=== PATIENT | male | born 1975 | race Caucasian/White ===

== ENCOUNTER 2017-10-09 07:12 | Inpatient (IN) | payer MEDICAID ==
[~2017-10-09] VITALS: Ht 152.4 cm; Wt 67.3 kg
[2017-10-09] VITALS (10 sets, daily range): BP systolic 100–111; BP diastolic 58–72; PULSE 67–75; RESP 12–24; TEMP 98; Ht 152.4 cm; Wt 67.3 kg
[2017-10-09] MEDS ORDERED: HYDROmorphONE 1 MG/ML SYG IV STA (07:35)
[2017-10-09] MEDS ORDERED: ONDANSETRON 4 MG INJ IV STA (07:35)
[2017-10-09] MEDS ORDERED: SOD CHLORIDE 0.9% 1,000 ML IV STA ×3 (07:35→15:05)
[2017-10-09 08:10] LABS: BASOPHIL # 0.1 10^3/ul (0.0-0.1); BASOPHILS % 0.7 % (0.0-2.0); EOSINOPHILS % 0.1 % (0.0-7.0); HEMATOCRIT 51.3 % (42.0-52.0); HEMOGLOBIN 17.6 g/dl (14.0-18.0); LYMPHOCYTES # 3.7 10^3/ul (0.8-2.9); LYMPHOCYTES % 31.8 % (15.0-51.0); MEAN CORPUSCULAR HEMOGLOBIN 31.2 pg (29.0-33.0); MEAN CORPUSCULAR HGB CONC 34.3 g/dl (32.0-37.0); MEAN PLATELET VOLUME 9.7 fl (7.4-10.4); MONOCYTE # 0.5 10^3/ul (0.3-0.9); MONOCYTES % 4.3 % (0.0-11.0); NEUTROPHIL # 7.2 10^3/ul (1.6-7.5); NEUTROPHILS % 62.4 % (39.0-77.0); PLATELET COUNT 352 10^3/UL (140-415); RED BLOOD COUNT 5.64 10^6/ul (4.70-6.10); RED CELL DISTRIBUTION WIDTH 13.8 % (11.5-14.5); WHITE BLOOD COUNT 11.5 10^3/ul (4.8-10.8)
[2017-10-09 08:27] LABS: ALANINE AMINOTRANSFERASE 32 IU/L (13-69); ALBUMIN 4.9 g/dl (3.3-4.9); ALBUMIN/GLOBULIN RATIO 1.19; ALKALINE PHOSPHATASE 159 IU/L (42-121); ASPARTATE AMINO TRANSFERASE 16 IU/L (15-46); BILIRUBIN,INDIRECT 0.3 mg/dl (0-1.1); BILIRUBIN,TOTAL 0.3 mg/dl (0.2-1.3); BLOOD UREA NITROGEN 16 mg/dl (7-20); CALCIUM 8.8 mg/dl (8.4-10.2); CHLORIDE 101 mmol/L (97-110); CREATININE 1.08 mg/dl (0.61-1.24); POTASSIUM 5.1 mmol/L (3.5-5.1); SODIUM 139 mmol/L (135-144)
--- NOTE | 2017-10-09 08:29 | RADRPT ---
PROCEDURE: XR Chest. CLINICAL INDICATION: Sepsis . TECHNIQUE: Single frontal chest x-ray. COMPARISON: None. FINDINGS: The lungs are clear of acute infiltrates, edema, effusions, or masses.. The cardiomediastinal silho uette is unremarkable. The osseous structures are intact. IMPRESSION: No acute cardiopulmonary disease. RPTAT: GG .Raffy Prado MD, MD Date Time Electronically viewed and signed by .Raffy Prado MD, MD on 10/09/2017 08:29 .L/
[2017-10-09 08:30] LABS: INR 1.03; PROTIME 13.6 Sec (11.9-14.9); PT RATIO 1.1
[2017-10-09 08:31] LABS: PARTIAL THROMBOPLASTIN TIME 30.2 Sec (25.0-35.0)
--- NOTE | 2017-10-09 08:32 | RADRPT ---
PROCEDURE: CT abdomen and pelvis without contrast. CLINICAL INDICATION: Emergency room patient. Sepsis. TECHNIQUE: CT scan of the abdomen and pelvis without contrast was performed and is reconstructed a t 2.5 mm contiguous axial intervals from the dome of the diaphragm to the inferior pubic rami.. The patient was scanned without intravenous contrast. Sagittal and coronal reformatted images were obt ained from the axial source images. The calculated radiation dose measures 397 mGy centimeters. The CTDI measures 7 mGy. Individualized dose optimization technique was used for the performance of this exam. This included 1. Automated exposure control. 2. Adjustment of the mA and / or kV according to the patient's size. 3. Use of iterative reconstructed technique. COMPARISON: None. FINDINGS: None The liver is of normal size, contour and attenuation with no mass or ductal dilatation. There is a c alcified granuloma at the peripheral left lung base No gallstones are visualized. No splenic, adr enal or pancreatic abnormalities present. Kidneys are of normal size and contour. No hydronephrosis, calculus or masses seen. Ureters are o f normal course and caliber with no stone. No bladder mass or stone is present. Prostate and semina l vesicles are normal. There is no aneurysm. No adenopathy is present. No bowel mass or obstruction is present. The appendix is not confidently visualized, however, no inflamed appendix is seen. No phlegmon, ascites or pneumoperitoneum is visualized. The osseous structures are intact. IMPRESSION: No evidence of urolithiasis, obstructive uropathy, diverticulitis or appendicitis. .Theo Ndiaye MD, Date Time Electronically viewed and signed by .Theo Ndiaye MD, MD on 10/09/2017 08:31 .A/
[2017-10-09 08:41] LABS: TROPONIN-I < 0.012 ng/ml (0.00-0.12)
[2017-10-09 08:42] LABS: ANION GAP 38 (8-16); CARBON DIOXIDE < 5 mmol/L (21-31); GLUCOSE 496 mg/dl (70-220)
[2017-10-09] MEDS ORDERED: LACTATED RINGER'S 1,000 ML IV STA (08:46)
[2017-10-09] MEDS ORDERED: INSULIN HUMAN REGULAR 100 UNIT in SOD CHLORIDE 0.9% 99 ML IV STA ×2 (08:46→09:09)
[2017-10-09 09:11] LABS: MODE ROOM AIR; MetHgb Venous 0.2 %; Sample Type Blood venous; Venous COHb 0.3 %; Venous Fraction OxyHgb 53.9 %; Venous Total Hemglobin 17.1 g/dl
--- NOTE | 2017-10-09 09:17 | ERD ---
ER Documentation Chief Complaint Chief Complaint Pt with back pain, vomiting and dizziness since yesterday. HPI Patient is a 41-year-old male who presents with back pain. The patient says that he has bilateral lower back pain which started yesterday and has been constant and sharp in nature. It has worsened since yesterday. He denies fevers. He has had no urinary symptoms or cough. He has had no treatment as of yet. He said that he has never had this before. He has diabetes and takes oral medications but no insulin. ROS All systems reviewed and are negative except as per history of present illness. Allergies Allergies: Coded Allergies: No Known Allergy (Unverified , 10/09/17) PMhx/Soc Medical and Surgical Hx: pt denies Medical Hx, pt denies Surgical Hx Hx Alcohol Use: No Hx Substance Use: No Hx Tobacco Use: No Smoking Status: Never smoker FmHx Family History: diabetes Physical Exam Vitals Vital Signs Date Time Temp Pulse Resp B/P Pulse Ox O2 Delivery O2 Flow Rate FiO2 10/09/17 08:15 Nasal Cannula 10/09/17 07:17 98.6 111 20 137/91 98 Physical Exam Const: Moderate distress secondary to pain Head: Atraumatic Eyes: Normal Conjunctiva ENT: Normal External Ears, Nose and Mouth. Neck: Full range of motion..~ No meningismus. Resp: Clear to auscultation bilaterally Cardio: Regular rate and rhythm, no murmurs Abd: Soft, non tender, non distended. Normal bowel sounds Skin: No petechiae or rashes Back: No midline tenderness to palpation, bilateral lower back pain with palpation Ext: No cyanosis, or edema Neur: Awake and alert Psych: Normal Mood and Affect Result Diagram: 10/09/17 0730 10/09/17 0730 Results 24 hrs Laboratory Tests Test 10/09/17 07:30 10/09/17 08:46 White Blood Count 11.510^3/ul Red Blood Count 5.6410^6/ul Hemoglobin 17.6g/dl Hematocrit 51.3% Mean Corpuscular Volume 91.0fl Mean Corpuscular Hemoglobin 31.2pg Mean Corpuscular Hemoglobin Concent 34.3g/dl Red Cell Distribution Width 13.8% Platelet Count 58254^3/UL Mean Platelet Volume 9.7fl Neutrophils % 62.4% Lymphocytes % 31.8% Monocytes % 4.3% Eosinophils % 0.1% Basophils % 0.7% Nucleated Red Blood Cells % 0.0/100WBC Neutrophils # 7.210^3/ul Lymphocytes # 3.710^3/ul Monocytes # 0.510^3/ul Eosinophils # 0.010^3/ul Basophils # 0.110^3/ul Nucleated Red Blood Cells # 0.010^3/ul Prothrombin Time 13.6Sec Prothrombin Time Ratio 1.1 INR International Normalized Ratio 1.03 Activated Partial Thromboplast Time 30.2Sec Sodium Level 139mmol/L Potassium Level 5.1mmol/L Chloride Level 101mmol/L Carbon Dioxide Level < 5mmol/L Anion Gap 38 Blood Urea Nitrogen 16mg/dl Creatinine 1.08mg/dl Glucose Level 496mg/dl Lactic Acid Level 4.9mmol/L Calcium Level 8.8mg/dl Total Bilirubin 0.3mg/dl Direct Bilirubin 0.00mg/dl Indirect Bilirubin 0.3mg/dl Aspartate Amino Transf (AST/SGOT) 16IU/L Alanine Aminotransferase (ALT/SGPT) 32IU/L Alkaline Phosphatase 159IU/L Troponin I < 0.012ng/ml Total Protein 9.0g/dl Albumin 4.9g/dl Globulin 4.10g/dl Albumin/Globulin Ratio 1.19 Blood Gas Specimen Source Blood venous Arterial Blood Date Drawn 10/09/2017 9:05:07 AM Arterial Blood Gas Puncture Site VENOUS LINE Mayur Test N/A Venous Blood pH 6.931 Venous Blood pCO2 (Temp Corrected) 28.9mmHG Venous Blood pO2 (Temp Corrected) 29.9mmHG Venous Blood HCO3 5.9mmol/L Venous Blood Oxygen Saturation 54.2mmHG Venous Blood Base Excess -25.8mmol/L Venous Blood Total Hemoglobin 17.1g/dl Venous Blood Oxyhemoglobin 53.9% Venous Blood Methemoglobin 0.2% Carboxyhemoglobin 0.3% Blood Gas Temperature 37.0C Blood Gas Modality ROOM AIR FiO2 21.0% Blood Gas Critical Value Read Back MD ALLEN Blood Gas Notified Whom [place] Blood Gas Notified Time 10/09/2017 9:09:09 AM Current Medications Medications (Trade) Dose Ordered Sig/Cici Route PRN Reason Start Time Stop Time Status Last Admin Dose Admin Sodium Chloride 1,000 ml @ 1,000 mls/hr Q1H STAT IV 10/09/17 07:35 10/09/17 08:34 DC 10/09/17 07:57 Sodium Chloride (NS) 1,000 ml @ 1,000 mls/hr Q1H STAT IV 10/09/17 07:35 10/09/17 08:34 DC 10/09/17 07:57 Hydromorphone HCl (Dilaudid) 1 mg ONCE STAT IV 10/09/17 07:35 10/09/17 07:37 DC 10/09/17 07:56 Ondansetron HCl 4 mg 4 mg ONCE STAT IV 10/09/17 07:35 10/09/17 07:37 DC 10/09/17 07:55 Lactated Ringer's 1,000 ml @ 1,000 mls/hr Q1H STAT IV 10/09/17 08:46 10/09/17 09:45 Insulin Human Regular 100 unit/ Sodium Chloride 100 ml @ 0 mls/hr TITRATE STAT IV 10/09/17 08:46 10/09/17 09:10 DC Insulin Human Regular/Sodium Chloride (Novolin-R/NS) 100 ml @ 7 mls/hr ONCE STAT IV 10/09/17 09:09 10/09/17 23:26 Procedures/MDM CT abdomen pelvis shows no surgical process per radiology. Patient is a 41-year-old male who presents with acute diabetic ketoacidosis. The patient was found to have severe acidosis along with elevated sugar and elevated anion gap. The patient was given 2 L of normal saline 1 L of lactated Ringer's for fluid resuscitation. The patient was started on an insulin drip at 7 U/h. He will need admission to the intensive care unit. The lactic acid is greater than 4 but at this point there is no sign of infection and I doubt sepsis or septic shock. I believe his elevated lactic acid is related to the diabetic ketoacidosis and poor perfusion. I spoke with Dr. Freitas from the panel team for admission to the intensive care unit. Critical Care: Time: 35 minutes excluding all billable procedures. Treatments/Evaluations: Close monitoring and treatment of unstable vital signs, cardiorespiratory, and neurologic status, while maintaining tight balance of fluid, respiratory, and cardiac interventions. Departure Diagnosis: Primary Impression: DKA (diabetic ketoacidoses) Diabetes mellitus type: type 2 Diabetes mellitus complication detail: without coma Qualified Code: E13.10 - Diabetic ketoacidosis without coma associated with type 2 diabetes mellitus Additional Impression: Back pain Back pain location: low back pain Chronicity: acute Back pain laterality: bilateral Sciatica presence: without sciatica Qualified Code: M54.5 - Acute bilateral low back pain without sciatica Condition: Critical AMISH SERNA MD Oct 09, 2017 09:17
[2017-10-09] MEDS ORDERED: ONDANSETRON 4 MG INJ IV PRN (09:30)
[2017-10-09] MEDS ORDERED: DEXTROSE 50% 50 ML SYRINGE IV PRN ×2 (09:30)
--- NOTE | 2017-10-09 09:34 | HP ---
Date/Time of Note Date/Time of Note DATE: 10/09/17 TIME: 09:29 Assessment/Plan VTE Prophylaxis VTE Prophylaxis Intervention: SCD's Assessment/Plan Assessment/Plan 41 yo M with 1, DKA 2. Newly diagnosed poorly controlled DM 2 Plan: Admit ICU / DKA protocol with insulin drip, aggressive IV hydration and 4 hourly labs / DM education r/o occult infection Supportive care further interventions per clinical course. HPI/ROS Admit Date/Time Admit Date/Time 10/09/17 Hx of Present Illness This is a 41-year-old male who was recently diagnosed with diabetes type 2 and started on oral metformin about 2 months ago who presents to the emergency room today with severe bilateral lower back pain that started yesterday and lethargy as well as some nausea. He denies fever he denies headache, denies cough, he does have some dysuria but there is no hematuria. In the emergency room and was found to be in severe DKA and is being admitted for monitoring and management. ROS 12 point review if systems was done and pertinent findings are as noted. PMH/Family/Social Past Medical History Medical History: diabetes Past Surgical History Past Surgical Hx: no surgical history Family History Significant Family History: diabetes Social History Alcohol Use: none Smoking Status: Never smoker Drug Use: none Exam/Review of Systems Vital Signs Vitals VS - Last 72 Hours, by Label Date Time Temp Pulse Resp B/P Pulse Ox O2 Delivery O2 Flow Rate FiO2 10/09/17 15:00 98.0 77 16 107/66 100 Room Air 10/09/17 13:20 98.0 78 16 111/67 100 Room Air 10/09/17 11:21 97.8 80 18 115/74 100 Room Air 10/09/17 10:03 72 18 130/69 100 Room Air 10/09/17 08:15 Nasal Cannula 10/09/17 07:17 98.6 111 20 137/91 98 VS - Last 72 Hours, by Label Date Time Temp Pulse Resp B/P Pulse Ox O2 Delivery O2 Flow Rate FiO2 10/09/17 08:15 Nasal Cannula 10/09/17 07:17 98.6 111 20 137/91 98 Vital Signs Date Time Temp Pulse Resp B/P Pulse Ox O2 Delivery O2 Flow Rate FiO2 10/09/17 08:15 Nasal Cannula 10/09/17 07:17 98.6 111 20 137/91 98 Exam Constitutional: alert, oriented, other (very acutely ill looking) Head: atraumatic, normocephalic Eyes: PERRL ENMT: No mucosa pink and moist (dry) Neck: non-tender, supple, No jvd Respiratory: clear to auscultation, normal air movement Cardiovascular: No regular rate and rhythm (mild tachycardia) Gastrointestinal: bowel sounds, non-tender, soft Extremities: No edema Neurological: lethargic, nl mental status Labs Result Diagram: 10/09/17 0730 10/09/17 0730 Medications Medications Current Medications Dextrose (D50w Syringe) 50 ml Q15M PRN IV For BS 50 or less; Start 10/09/17 at 09:30; Status UNV Dextrose (D50w Syringe) 25 ml Q15M PRN IV BS between 50-70; Start 10/09/17 at 09:30; Status UNV Diagnostic Test (Pha) 1 ea 1 ea Q1H XX ; Start 10/09/17 at 09:30; Status UNV Sodium Chloride 1,000 ml @ 125 mls/hr Q8H IV ; Start 10/09/17 at 09:15; Status UNV Dextrose/Sodium Chloride (D5-1/2ns) 1,000 ml @ 125 mls/hr Q8H IV ; Start at 09:15; Status UNV Famotidine (Pepcid Iv) 20 mg BID IV ; Start 10/09/17 at 21:00; Status UNV Ondansetron HCl (Zofran Inj) 4 mg Q6H PRN IV NAUSEA AND/OR VOMITING; Start 10/09/17 at 09:30; Status UNV Docusate Sodium (Colace) 200 mg BID PO ; Start 10/09/17 at 21:00; Status UNV Procedures Procedures Laboratory Tests Test 10/09/17 07:30 10/09/17 08:46 10/09/17 09:19 White Blood Count 11.510^3/ul Red Blood Count 5.6410^6/ul Hemoglobin 17.6g/dl Hematocrit 51.3% Mean Corpuscular Volume 91.0fl Mean Corpuscular Hemoglobin 31.2pg Mean Corpuscular Hemoglobin Concent 34.3g/dl Red Cell Distribution Width 13.8% Platelet Count 14273^3/UL Mean Platelet Volume 9.7fl Neutrophils % 62.4% Lymphocytes % 31.8% Monocytes % 4.3% Eosinophils % 0.1% Basophils % 0.7% Nucleated Red Blood Cells % 0.0/100WBC Neutrophils # 7.210^3/ul Lymphocytes # 3.710^3/ul Monocytes # 0.510^3/ul Eosinophils # 0.010^3/ul Basophils # 0.110^3/ul Nucleated Red Blood Cells # 0.010^3/ul Prothrombin Time 13.6Sec Prothrombin Time Ratio 1.1 INR International Normalized Ratio 1.03 Activated Partial Thromboplast Time 30.2Sec Sodium Level 139mmol/L Potassium Level 5.1mmol/L Chloride Level 101mmol/L Carbon Dioxide Level < 5mmol/L Anion Gap 38 Blood Urea Nitrogen 16mg/dl Creatinine 1.08mg/dl Glucose Level 496mg/dl Lactic Acid Level 4.9mmol/L Calcium Level 8.8mg/dl Total Bilirubin 0.3mg/dl Direct Bilirubin 0.00mg/dl Indirect Bilirubin 0.3mg/dl Aspartate Amino Transf (AST/SGOT) 16IU/L Alanine Aminotransferase (ALT/SGPT) 32IU/L Alkaline Phosphatase 159IU/L Troponin I < 0.012ng/ml Total Protein 9.0g/dl Albumin 4.9g/dl Globulin 4.10g/dl Albumin/Globulin Ratio 1.19 Blood Gas Specimen Source Blood venous Arterial Blood Date Drawn 10/09/2017 9:05:07 AM Arterial Blood Gas Puncture Site VENOUS LINE Mayur Test N/A Venous Blood pH 6.931 Venous Blood pCO2 (Temp Corrected) 28.9mmHG Venous Blood pO2 (Temp Corrected) 29.9mmHG Venous Blood HCO3 5.9mmol/L Venous Blood Oxygen Saturation 54.2mmHG Venous Blood Base Excess -25.8mmol/L Venous Blood Total Hemoglobin 17.1g/dl Venous Blood Oxyhemoglobin 53.9% Venous Blood Methemoglobin 0.2% Carboxyhemoglobin 0.3% Blood Gas Temperature 37.0C Blood Gas Modality ROOM AIR FiO2 21.0% Blood Gas Critical Value Read Back MD ALLEN Blood Gas Notified Whom [place] Blood Gas Notified Time 10/09/2017 9:09:09 AM Bedside Glucose 397mg/dL Current Medications Medications (Trade) Dose Ordered Sig/Cici Route PRN Reason Start Time Stop Time Status Last Admin Dose Admin Sodium Chloride 1,000 ml @ 1,000 mls/hr Q1H STAT IV 10/09/17 07:35 10/09/17 08:34 DC 10/09/17 07:57 1,000 MLS/HR Sodium Chloride (NS) 1,000 ml @ 1,000 mls/hr Q1H STAT IV 10/09/17 07:35 10/09/17 08:34 DC 10/09/17 07:57 1,000 MLS/HR Hydromorphone HCl (Dilaudid) 1 mg ONCE STAT IV 10/09/17 07:35 10/09/17 07:37 DC 10/09/17 07:56 1 MG Ondansetron HCl 4 mg 4 mg ONCE STAT IV 10/09/17 07:35 10/09/17 07:37 DC 10/09/17 07:55 4 MG Lactated Ringer's 1,000 ml @ 1,000 mls/hr Q1H STAT IV 10/09/17 08:46 10/09/17 09:45 Insulin Human Regular 100 unit/ Sodium Chloride 100 ml @ 0 mls/hr TITRATE STAT IV 10/09/17 08:46 10/09/17 09:10 DC Insulin Human Regular/Sodium Chloride (Novolin-R/NS) 100 ml @ 7 mls/hr ONCE STAT IV 10/09/17 09:09 10/09/17 23:26 10/09/17 09:16 7 MLS/HR Dextrose (D50w Syringe) 50 ml Q15M PRN IV For BS 50 or less 10/09/17 09:30 UNV Dextrose 25 ml 25 ml Q15M PRN IV BS between 50-70 10/09/17 09:30 UNV Insulin Human Regular/Sodium Chloride (Novolin-R/NS) 100 ml @ 0 mls/hr DKA PROTOCOL IV 10/09/17 09:30 UNV Diagnostic Test (Pha) (Accu-Chek) 1 ea Q1H XX 10/09/17 09:30 UNV Miscellaneous Information HYPOGLYCEMIA TREATMENT HYPOGLYCEM PROTOCOL PRN XX Hypoglycemia (BS < 70) 10/09/17 09:30 UNV Sodium Chloride 1,000 ml @ 125 mls/hr Q8H IV 10/09/17 09:15 UNV Dextrose/Sodium Chloride (D5-1/2ns) 1,000 ml @ 125 mls/hr Q8H IV 10/09/17 09:15 UNV Famotidine (Pepcid Iv) 20 mg BID IV 10/09/17 21:00 UNV Ondansetron HCl (Zofran Inj) 4 mg Q6H PRN IV NAUSEA AND/OR VOMITING 10/09/17 09:30 UNV Docusate Sodium (Colace) 200 mg BID PO 10/09/17 21:00 UNV PROCEDURE: CT abdomen and pelvis without contrast. CLINICAL INDICATION: Emergency room patient. Sepsis. TECHNIQUE: CT scan of the abdomen and pelvis without contrast was performed and is reconstructed at 2.5 mm contiguous axial intervals from the dome of the diaphragm to the inferior pubic rami.. The patient was scanned without intravenous contrast. Sagittal and coronal reformatted images were obtained from the axial source images. The calculated radiation dose measures 397 mGy centimeters. The CTDI measures 7 mGy. Individualized dose optimization technique was used for the performance of this exam. This included 1. Automated exposure control. 2. Adjustment of the mA and / or kV according to the patient's size. 3. Use of iterative reconstructed technique. COMPARISON: None. FINDINGS: None The liver is of normal size, contour and attenuation with no mass or ductal dilatation. There is a calcified granuloma at the peripheral left lung base No gallstones are visualized. No splenic, adrenal or pancreatic abnormalities present. Kidneys are of normal size and contour. No hydronephrosis, calculus or masses seen. Ureters are of normal course and caliber with no stone. No bladder mass or stone is present. Prostate and seminal vesicles are normal. There is no aneurysm. No adenopathy is present. No bowel mass or obstruction is present. The appendix is not confidently visualized, however, no inflamed appendix is seen. No phlegmon, ascites or pneumoperitoneum is visualized. The osseous structures are intact. IMPRESSION: No evidence of urolithiasis, obstructive uropathy, diverticulitis or appendicitis. .Theo Ndiaye MD, MD Date Time Electronically viewed and signed by .Theo Ndiaye MD, MD on 10/09/2017 08: 31 .A/ CC: AMISH SERNA MD PROCEDURE: XR Chest. CLINICAL INDICATION: Sepsis . TECHNIQUE: Single frontal chest x-ray. COMPARISON: None. FINDINGS: The lungs are clear of acute infiltrates, edema, effusions, or masses.. The cardiomediastinal silhouette is unremarkable. The osseous structures are intact. IMPRESSION: No acute cardiopulmonary disease. RPTAT: GG .Raffy Prado MD, MD Date Time Electronically viewed and signed by .Raffy Prado MD, MD on 10/09/2017 08:29 .L/ CC: AMISH SERNA MD, [place] M. Oct 09, 2017 09:34
[2017-10-09] MEDS: ACCU-CHEK XX SCH ×14 (10:30→23:34)
[2017-10-09 11:47] LABS: ADD UMIC YES; UR ASCORBIC ACID NEGATIVE (NEGATIVE); UR BILIRUBIN (Dip) NEGATIVE (NEGATIVE); UR BLOOD (Dip) 1+ mg/dL (NEGATIVE); UR CLARITY CLEAR (CLEAR); UR COLOR STRAW (YELLOW); UR GLUCOSE (Dip) 3+ mg/dL (NEGATIVE); UR KETONES (Dip) 2+ mg/dL (NEGATIVE); UR LEUKOCYTE ESTERASE (Dip) NEGATIVE Leu/ul (NEGATIVE); UR NITRITE (Dip) NEGATIVE (NEGATIVE); UR RBC 0 /HPF (0-5); UR TOTAL PROTEIN (Dip) 2+ mg/dl (NEGATIVE); UR UROBILINOGEN (Dip) NEGATIVE (NEGATIVE)
[2017-10-09 11:56] LABS: MAGNESIUM 1.9 mg/dl (1.7-2.5); PHOSPHORUS 3.4 mg/dl (2.5-4.9)
[2017-10-09 11:58] LABS: BLOOD UREA NITROGEN 14 mg/dl (7-20); CALCIUM 7.7 mg/dl (8.4-10.2); CHLORIDE 111 mmol/L (97-110); CREATININE 0.73 mg/dl (0.61-1.24); GLUCOSE 313 mg/dl (70-220); POTASSIUM 4.8 mmol/L (3.5-5.1); SODIUM 140 mmol/L (135-144)
[2017-10-09 12:04] LABS: ANION GAP 29 (8-16)
[2017-10-09 12:05] LABS: CARBON DIOXIDE < 5 mmol/L (21-31)
[2017-10-09] MEDS ORDERED: LIDOCAINE 1% (MDV) 10 ML INJ ONE (12:27)
[2017-10-09] MEDS ORDERED: GLUCOSE GEL 15 GRAM TUBE PO PRN ×2 (13:30)
[2017-10-09] MEDS ORDERED: GLUCOSE GEL 15 GRAM TUBE BUCCAL PRN (13:30)
[2017-10-09] MEDS ORDERED: GLUCAGON 1 MG INJ IM PRN (13:30)
[2017-10-09] MEDS: INSULIN HUMAN REGULAR 100 UNIT in SOD CHLORIDE 0.9% 99 ML IV SCH ×2 (13:30→23:45)
[2017-10-09] MEDS: SOD CHLORIDE 0.9% 1,000 ML IV SCH ×2 (13:38→16:53)
[2017-10-09 14:26] LABS: CALCIUM 7.6 mg/dl (8.4-10.2); CREATININE 0.69 mg/dl (0.61-1.24); POTASSIUM 4.1 mmol/L (3.5-5.1)
[2017-10-09] MEDS ORDERED: SOD CHLORIDE 0.9% 250 ML IV ONE (16:00)
[2017-10-09] MEDS: DEXTROSE 5%-0.45% NACL 1,000 ML IV SCH ×2 (16:59→23:39)
[2017-10-09 17:15] LABS: OPIATES Negative (NEGATIVE)
[2017-10-09 17:16] LABS: BARBITURATES Negative (NEGATIVE); BENZODIAZEPINES Negative (NEGATIVE); CANNABINOIDS Negative (NEGATIVE); COCAINE Negative (NEGATIVE)
[2017-10-09 18:32] LABS: CALCIUM 7.7 mg/dl (8.4-10.2); CREATININE 0.62 mg/dl (0.61-1.24); POTASSIUM 3.3 mmol/L (3.5-5.1)
[2017-10-09] MEDS: FAMOTIDINE 20 MG TAB PO SCH (21:06)
[2017-10-09] MEDS: DOCUSATE SODIUM 100 MG CAP PO SCH (21:07)
[2017-10-09 23:04] LABS: CREATININE 0.57 mg/dl (0.61-1.24)
[2017-10-09 23:07] LABS: POTASSIUM 2.7 mmol/L (3.5-5.1)
[2017-10-09] MEDS: POTASSIUM CHLORIDE 250 ML IVPB SCH (23:22)
[2017-10-10] VITALS (17 sets, daily range): BP systolic 93–105; BP diastolic 45–71; PULSE 52–79; RESP 10–17
[2017-10-10] MEDS: ACCU-CHEK XX SCH ×17 (00:39→21:00)
[2017-10-10] MEDS: DEXTROSE 5%-0.45% NACL 1,000 ML IV SCH ×2 (02:15→07:38)
[2017-10-10 02:50] LABS: CALCIUM 8.3 mg/dl (8.4-10.2); CREATININE 0.48 mg/dl (0.61-1.24); POTASSIUM 3.2 mmol/L (3.5-5.1)
[2017-10-10] MEDS: SOD CHLORIDE 0.9% 1,000 ML IV SCH ×2 (03:21→09:43)
[2017-10-10] MEDS: POTASSIUM CHLORIDE 250 ML IVPB SCH (04:50)
[2017-10-10 07:33] LABS: CALCIUM 8.3 mg/dl (8.4-10.2); CHOL/HDL RATIO 5.7 RATIO; CREATININE 0.58 mg/dl (0.61-1.24); MAGNESIUM 1.8 mg/dl (1.7-2.5); PHOSPHORUS 1.5 mg/dl (2.5-4.9); POTASSIUM 3.1 mmol/L (3.5-5.1)
[2017-10-10] MEDS: INSULIN ASPART [NOVOLOG] 3 ML PEN SC SCH ×4 (08:00→21:10)
[2017-10-10] MEDS: FAMOTIDINE 20 MG TAB PO SCH ×2 (08:11→21:05)
[2017-10-10] MEDS: DOCUSATE SODIUM 100 MG CAP PO SCH ×2 (08:11→21:04)
[2017-10-10] MEDS ORDERED: INSULIN GLARGINE [LANtus] 3 ML PEN SC ONE (08:30)
--- NOTE | 2017-10-10 09:10 | PN ---
Date/Time of Note Date/Time of Note DATE: 10/10/17 TIME: 09:07 Assessment/Plan VTE Prophylaxis VTE Prophylaxis Intervention: other Lines/Catheters IV C[facility]ter Type (from [facility]): Saline Lock Urinary Cath still in place: No Assessment/Plan Problems: (1) DKA (diabetic ketoacidoses) Status: Acute Comment: It is unclear what the stimulating event for this is but he clearly had DKA coming into the hospital. He has negative cardiac enzymes and there is no evidence of lactic acidosis or some type of an infarction of an organ. In addition there is no evidence of active infection. And no evidence of biliary disease. He is coming out of the DKA nicely and actually has very been given a dosage of basal insulin this morning. I will check his chemistry about 1:00 and if his bicarb is stabilized I will turn off the insulin drip at that time and transition him over. In addition his appropriate to place him on DPP 4 inhibitor drug and later we can add back and low-dose metformin. I am checking a C-peptide to make sure this is truly a type II diabetic who developed DKA. His most likely type II given the markedly elevated hemoglobin A1c which indicates the chronicity of this issue Qualifiers: Diabetes mellitus type: type 2 Diabetes mellitus complication detail: without coma Qualified Code: E13.10 - Diabetic ketoacidosis without coma associated with type 2 diabetes mellitus (2) Back pain Status: Chronic Comment: This is a chronic issue. He has not been on medications for this and will be deferred to his outpatient primary care physician Qualifiers: Back pain location: low back pain Chronicity: acute Back pain laterality : bilateral Sciatica presence: without sciatica Qualified Code: M54.5 - Acute bilateral low back pain without sciatica (3) Acute hypokalemia Status: Acute Comment: Replacing his potassium Subjective 24 Hr Interval Summary Free Text/Dictation Pleasant gentleman lying in bed. Constitutional: no complaints (No fevers chills or sweats) ENT: no complaints Respiratory: no complaints Cardiovascular: no complaints Gastrointestinal: no complaints Genitourinary: no complaints Musculoskeletal: back pain (Chronic back pain) Neurologic: no complaints Endocrine: no complaints Exam/Review of Systems Vital Signs Vitals Vital Signs Date Time Temp Pulse Resp B/P Pulse Ox O2 Delivery O2 Flow Rate FiO2 10/10/17 06:00 98.7 57 12 94/63 98 Room Air Intake and Output 12/1/17 12/1/17 12/2/17 15:00 23:00 07:00 Intake Total 3000 ml 1183.6 ml 1245.7 ml Output Total 1000 ml 2750 ml 800 ml Balance 2000 ml -1566.4 ml 445.7 ml Exam Constitutional: alert, oriented Neck: non-tender, supple Respiratory: clear to auscultation, normal air movement Cardiovascular: nl pulses, regular rate and rhythm Gastrointestinal: nl liver, spleen, non-tender, soft Results Result Diagram: 10/09/17 0730 10/10/17 0606 Results 24 hrs Laboratory Tests Test 10/09/17 09:19 10/09/17 10:22 10/09/17 11:08 10/09/17 11:09 Bedside Glucose 397 H 332 H Lactic Acid Level 2.8 *H Sodium Level 140 Potassium Level 4.8 Chloride Level 111 H Carbon Dioxide Level < 5 *L Anion Gap 29 #H Blood Urea Nitrogen 14 Creatinine 0.73 Glucose Level 313 #H Hemoglobin A1c 13.6 H Calcium Level 7.7 L Phosphorus Level 3.4 Magnesium Level 1.9 Test 10/09/17 11:20 10/09/17 12:57 10/09/17 13:35 10/09/17 13:50 Bedside Glucose 346 H 272 H 270 H Sodium Level 137 Potassium Level 4.1 Chloride Level 111 H Carbon Dioxide Level 5 *L Anion Gap 25 H Blood Urea Nitrogen 14 Creatinine 0.69 Glucose Level 256 H Lactic Acid Level 1.8 Calcium Level 7.6 L Test 10/09/17 14:55 10/09/17 15:38 10/09/17 16:31 10/09/17 17:31 Bedside Glucose 200 190 158 151 Test 10/09/17 17:50 10/09/17 18:36 10/09/17 19:34 10/09/17 21:04 Sodium Level 139 Potassium Level 3.3 L Chloride Level 113 H Carbon Dioxide Level 10 #L Anion Gap 19 H Blood Urea Nitrogen 11 Creatinine 0.62 Glucose Level 144 # Calcium Level 7.7 L Bedside Glucose 173 192 198 Test 10/09/17 21:26 10/09/17 22:22 10/09/17 22:24 10/09/17 23:23 Bedside Glucose 186 210 195 Sodium Level 136 Potassium Level 2.7 *L Chloride Level 112 H Carbon Dioxide Level 15 L Anion Gap 12 # Blood Urea Nitrogen 9 Creatinine 0.57 L Glucose Level 212 Calcium Level 8.0 L Test 10/10/17 00:36 10/10/17 01:10 10/10/17 02:10 10/10/17 02:12 Bedside Glucose 164 142 108 Sodium Level 139 Potassium Level 3.2 L Chloride Level 115 H Carbon Dioxide Level 16 L Anion Gap 11 Blood Urea Nitrogen 8 Creatinine 0.48 L Glucose Level 115 # Calcium Level 8.3 L Test 10/10/17 03:08 10/10/17 04:25 10/10/17 05:37 10/10/17 06:05 Bedside Glucose 134 97 114 White Blood Count Pending Red Blood Count Pending Hemoglobin Pending Hematocrit Pending Mean Corpuscular Volume Pending Mean Corpuscular Hemoglobin Pending Mean Corpuscular Hemoglobin Concent Pending Red Cell Distribution Width Pending Platelet Count Pending Mean Platelet Volume Pending Test 10/10/17 06:06 10/10/17 06:31 10/10/17 06:39 10/10/17 07:34 Sodium Level 139 Potassium Level 3.1 L Chloride Level 113 H Carbon Dioxide Level 19 L Anion Gap 10 Blood Urea Nitrogen 7 Creatinine 0.58 L Glucose Level 133 Calcium Level 8.3 L Phosphorus Level 1.5 #L Magnesium Level 1.8 Triglycerides Level 598 H Cholesterol Level 237 H LDL Cholesterol, Calculated HDL Cholesterol 41 Cholesterol/HDL Ratio 5.7 Bedside Glucose 127 100 Lactic Acid Level 0.8 Test 10/10/17 08:41 Bedside Glucose 111 Medications Medications Current Medications Dextrose (D50w Syringe) 50 ml Q15M PRN IV For BS 50 or less; Start 10/09/17 at 09:30 Dextrose (D50w Syringe) 25 ml Q15M PRN IV BS between 50-70; Start 10/09/17 at 09:30 Diagnostic Test (Pha) 1 ea 1 ea Q1H XX Last administered on 10/10/17 08:42; Admin Dose 1 EA; Start 10/09/17 at 09:30 Sodium Chloride 1,000 ml @ 150 mls/hr Q6H40M IV Last administered on 03:21; Admin Dose 150 MLS/HR; Start 10/09/17 at 09:15 Dextrose/Sodium Chloride (D5-1/2ns) 1,000 ml @ 150 mls/hr Q6H40M IV Last administered on 10/10/17 07:38; Admin Dose 150 MLS/HR; Start 10/09/17 at 09:15 Famotidine (Pepcid) 20 mg BID PO Last administered on 10/10/17 08:11; Admin Dose 20 MG; Start 10/09/17 at 21:00 Ondansetron HCl (Zofran Inj) 4 mg Q6H PRN IV NAUSEA AND/OR VOMITING; Start 10/09/17 at 09:30 Docusate Sodium (Colace) 200 mg BID PO Last administered on 10/10/17 08:11; Admin Dose 200 MG; Start 10/09/17 at 21:00 Miscellaneous Information 1 ea NOTE XX ; Start 10/09/17 at 13:30 Glucose (Glutose) 15 gm Q15M PRN PO DECREASED GLUCOSE; Start 10/09/17 at 13:30 Glucose (Glutose) 22.5 gm Q15M PRN PO DECREASED GLUCOSE; Start 10/09/17 at 13: 30 Glucagon (Glucagen) 1 mg Q15M PRN IM DECREASED GLUCOSE; Start 10/09/17 at 13:30 Glucose (Glutose) 15 gm Q15M PRN BUCCAL DECREASED GLUCOSE; Start 10/09/17 at 13 :30 Morphine Sulfate (morphine) 2 mg Q4H PRN IV pain; Start 10/09/17 at 16:00 Influenza Virus Vaccine (Fluzone) 0.5 ml ONCE ONCE IM* ; Start 10/13/17 at 09:00 ; Stop 10/13/17 at 09:01 FAROOQ GU MD Oct 10, 2017 09:10
[2017-10-10] MEDS ORDERED: POTASSIUM CHLORIDE (SR) 20 MEQ TAB PO ONE ×2 (10:44→20:04)
[2017-10-10] MEDS: POTASSIUM CHLORIDE (SR) 20 MEQ TAB PO SCH ×2 (10:54→21:05)
[2017-10-10] MEDS: LINAGLIPTIN 5 MG TABLET PO SCH (10:55)
[2017-10-10 11:27] LABS: BASOPHILS % 0.4 % (0.0-2.0); EOSINOPHILS # 0.1 10^3/ul (0.0-0.5); EOSINOPHILS % 1.1 % (0.0-7.0); HEMATOCRIT 34.6 % (42.0-52.0); HEMOGLOBIN 12.6 g/dl (14.0-18.0); LYMPHOCYTES # 1.4 10^3/ul (0.8-2.9); LYMPHOCYTES % 25.8 % (15.0-51.0); MEAN CORPUSCULAR HEMOGLOBIN 31.2 pg (29.0-33.0); MEAN CORPUSCULAR HGB CONC 36.4 g/dl (32.0-37.0); MEAN CORPUSCULAR VOLUME 85.6 fl (82.0-101.0); MEAN PLATELET VOLUME 9.9 fl (7.4-10.4); MONOCYTE # 0.4 10^3/ul (0.3-0.9); MONOCYTES % 7.5 % (0.0-11.0); NEUTROPHIL # 3.6 10^3/ul (1.6-7.5); PLATELET COUNT 198 10^3/UL (140-415); RED BLOOD COUNT 4.04 10^6/ul (4.70-6.10); WHITE BLOOD COUNT 5.5 10^3/ul (4.8-10.8)
[2017-10-10 12:25] LABS: CALCIUM 8.5 mg/dl (8.4-10.2); CREATININE 0.53 mg/dl (0.61-1.24); POTASSIUM 3.5 mmol/L (3.5-5.1)
[2017-10-11 02:49] VITALS: BP 100/64; RESP 14
[2017-10-11 05:34] LABS: BASOPHILS % 0.7 % (0.0-2.0); EOSINOPHILS # 0.1 10^3/ul (0.0-0.5); EOSINOPHILS % 1.7 % (0.0-7.0); HEMATOCRIT 34.7 % (42.0-52.0); HEMOGLOBIN 12.7 g/dl (14.0-18.0); LYMPHOCYTES # 1.9 10^3/ul (0.8-2.9); LYMPHOCYTES % 44.7 % (15.0-51.0); MEAN CORPUSCULAR HEMOGLOBIN 31.2 pg (29.0-33.0); MEAN CORPUSCULAR HGB CONC 36.6 g/dl (32.0-37.0); MEAN CORPUSCULAR VOLUME 85.3 fl (82.0-101.0); MEAN PLATELET VOLUME 9.4 fl (7.4-10.4); MONOCYTE # 0.4 10^3/ul (0.3-0.9); MONOCYTES % 8.8 % (0.0-11.0); NEUTROPHIL # 1.9 10^3/ul (1.6-7.5); NEUTROPHILS % 44.1 % (39.0-77.0); PLATELET COUNT 174 10^3/UL (140-415); RED BLOOD COUNT 4.07 10^6/ul (4.70-6.10); WHITE BLOOD COUNT 4.2 10^3/ul (4.8-10.8)
[2017-10-11 06:03] LABS: CALCIUM 8.5 mg/dl (8.4-10.2); CREATININE 0.59 mg/dl (0.61-1.24)
[2017-10-11 07:54] VITALS: BP 109/70; RESP 16
[2017-10-11] MEDS: ACCU-CHEK XX SCH ×4 (08:00→20:25)
[2017-10-11] MEDS: INSULIN ASPART [NOVOLOG] 3 ML PEN SC SCH ×4 (08:04→20:25)
[2017-10-11] MEDS: DOCUSATE SODIUM 100 MG CAP PO SCH ×2 (08:20→20:12)
[2017-10-11] MEDS: FAMOTIDINE 20 MG TAB PO SCH ×2 (08:20→20:13)
[2017-10-11] MEDS: POTASSIUM CHLORIDE (SR) 20 MEQ TAB PO SCH ×3 (08:20→20:13)
[2017-10-11] MEDS: LINAGLIPTIN 5 MG TABLET PO SCH (08:20)
--- NOTE | 2017-10-11 12:39 | PN ---
Date/Time of Note Date/Time of Note DATE: 10/11/17 TIME: 12:37 Assessment/Plan VTE Prophylaxis VTE Prophylaxis Intervention: ambulation Lines/Catheters IV C[facility] Type (from [facility] Saline Lock Urinary Cath still in place: No Assessment/Plan Problems: (1) DKA (diabetic ketoacidoses) Status: Acute Comment: Very likely he is a type II diabetic however the data on this is fully pending. For now he will be on insulin which can be changed as an outpatient. Please note that there was a breakdown in communication he only received 1 dosage of basal insulin yesterday. I will take care of that now. He should be ready for discharge tomorrow Qualifiers: Diabetes mellitus type: type 2 Diabetes mellitus complication detail: without coma Qualified Code: E13.10 - Diabetic ketoacidosis without coma associated with type 2 diabetes mellitus (2) Back pain Status: Chronic Comment: Noted. Qualifiers: Back pain location: low back pain Chronicity: acute Back pain laterality : bilateral Sciatica presence: without sciatica Qualified Code: M54.5 - Acute bilateral low back pain without sciatica (3) Acute hypokalemia Status: Acute Comment: We will replace his potassium. Subjective 24 Hr Interval Summary Free Text/Dictation Patient is feeling much better sitting up and eating and ambulating as well Constitutional: no complaints Respiratory: no complaints Cardiovascular: no complaints Gastrointestinal: no complaints Genitourinary: no complaints Exam/Review of Systems Vital Signs Vitals Vital Signs Date Time Temp Pulse Resp B/P Pulse Ox O2 Delivery O2 Flow Rate FiO2 10/11/17 07:54 97.7 55 16 109/70 100 10/10/17 14:00 Room Air Intake and Output 10/10/17 10/10/17 10/11/17 14:59 22:59 06:59 Intake Total 1395.57 ml 480 ml 600 ml Output Total 1250 ml 2 ml Balance 145.57 ml 480 ml 598 ml Exam Constitutional: alert, oriented Neck: non-tender, supple Respiratory: clear to auscultation, normal air movement Cardiovascular: nl pulses, regular rate and rhythm Results Result Diagram: 10/11/17 0512 10/11/17 0426 Results 24 hrs Laboratory Tests Test 10/10/17 12:40 10/10/17 17:15 10/10/17 20:40 10/11/17 04:26 Bedside Glucose 266 H 205 254 H Sodium Level 135 Potassium Level 3.0 L Chloride Level 102 Carbon Dioxide Level 22 Anion Gap 14 Blood Urea Nitrogen 8 Creatinine 0.59 L Glucose Level 252 H Calcium Level 8.5 Test 10/11/17 05:12 10/11/17 08:01 10/11/17 12:16 White Blood Count 4.2 #L Red Blood Count 4.07 L Hemoglobin 12.7 L Hematocrit 34.7 L Mean Corpuscular Volume 85.3 Mean Corpuscular Hemoglobin 31.2 Mean Corpuscular Hemoglobin Concent 36.6 Red Cell Distribution Width 14.0 Platelet Count 174 Mean Platelet Volume 9.4 Neutrophils % 44.1 Lymphocytes % 44.7 Monocytes % 8.8 Eosinophils % 1.7 Basophils % 0.7 Nucleated Red Blood Cells % 0.0 Neutrophils # 1.9 Lymphocytes # 1.9 Monocytes # 0.4 Eosinophils # 0.1 Basophils # 0.0 Nucleated Red Blood Cells # 0.0 Bedside Glucose 273 H 248 H Medications Medications Current Medications Dextrose (D50w Syringe) 50 ml Q15M PRN IV For BS 50 or less; Start 10/09/17 at 09:30 Dextrose (D50w Syringe) 25 ml Q15M PRN IV BS between 50-70; Start 10/09/17 at 09:30 Famotidine (Pepcid) 20 mg BID PO Last administered on 10/11/17 08:20; Admin Dose 20 MG; Start 10/09/17 at 21:00 Ondansetron HCl (Zofran Inj) 4 mg Q6H PRN IV NAUSEA AND/OR VOMITING; Start 10/09/17 at 09:30 Docusate Sodium (Colace) 200 mg BID PO Last administered on 10/11/17 08:20; Admin Dose 200 MG; Start 10/09/17 at 21:00 Miscellaneous Information 1 ea NOTE XX ; Start 10/09/17 at 13:30 Glucose (Glutose) 15 gm Q15M PRN PO DECREASED GLUCOSE; Start 10/09/17 at 13:30 Glucose (Glutose) 22.5 gm Q15M PRN PO DECREASED GLUCOSE; Start 10/09/17 at 13: 30 Glucagon (Glucagen) 1 mg Q15M PRN IM DECREASED GLUCOSE; Start 10/09/17 at 13:30 Glucose (Glutose) 15 gm Q15M PRN BUCCAL DECREASED GLUCOSE; Start 10/09/17 at 13 :30 Morphine Sulfate (morphine) 2 mg Q4H PRN IV pain; Start 10/09/17 at 16:00 Influenza Virus Vaccine (Fluzone) 0.5 ml ONCE ONCE IM* ; Start 10/13/17 at 09:00 ; Stop 10/13/17 at 09:01 Potassium Chloride (Klor-Con 20) 40 meq TID PO Last administered on 10/11/17 08:20; Admin Dose 40 MEQ; Start 10/10/17 at 13:00; Stop 10/11/17 at 12:59 Linagliptin (Tradjenta) 5 mg DAILY PO Last administered on 10/11/17 08:20; Admin Dose 5 MG; Start 10/10/17 at 09:30 Potassium Chloride (Klor-Con 20) 40 meq BID PO ; Start 10/11/17 at 13:00; Stop 10/12/17 at 12:59; Status UNV Insulin Glargine (Lantus) 15 unit DAILY@20 SC ; Start 10/11/17 at 20:00; Status UNV Insulin Detemir (Levemir) 8 unit ONCE ONCE SC ; Start 10/11/17 at 13:00; Stop 10/11/17 at 13:01; Status UNV FAROOQ GU MD Oct 11, 2017 12:39
[2017-10-11] MEDS ORDERED: INSULIN DETEMIR [LEVEMIR] 3ML CART SC ONE (13:00)
[2017-10-11 14:27] VITALS: BP 91/60; RESP 16
[2017-10-11 19:38] VITALS: BP 100/67; RESP 20
[2017-10-11] MEDS ORDERED: INSULIN GLARGINE [LANtus] 3 ML PEN SC SCH (20:00)
[2017-10-11] MEDS ORDERED: INSULIN ASPART [NOVOLOG] 3 ML PEN SC ONE (21:00)
[2017-10-12] MEDS ORDERED: ACCU-CHEK XX SCH (02:00)
[2017-10-12 02:12] VITALS: BP 94/60; RESP 20
[2017-10-12 07:57] VITALS: BP 97/68; RESP 16
[2017-10-12] MEDS: ACCU-CHEK XX SCH ×2 (08:00→12:45)
[2017-10-12 08:05] LABS: CALCIUM 9.2 mg/dl (8.4-10.2); CREATININE 0.56 mg/dl (0.61-1.24); POTASSIUM 3.9 mmol/L (3.5-5.1)
[2017-10-12] MEDS: morphine 2 MG INJ IV PRN ×2 (08:15→13:15)
[2017-10-12] MEDS: INSULIN ASPART [NOVOLOG] 3 ML PEN SC SCH ×5 (08:16→17:19)
[2017-10-12 08:20] LABS: BASOPHILS % 0.8 % (0.0-2.0); EOSINOPHILS # 0.1 10^3/ul (0.0-0.5); EOSINOPHILS % 1.3 % (0.0-7.0); HEMATOCRIT 38.3 % (42.0-52.0); HEMOGLOBIN 13.9 g/dl (14.0-18.0); LYMPHOCYTES # 1.7 10^3/ul (0.8-2.9); LYMPHOCYTES % 44.5 % (15.0-51.0); MEAN CORPUSCULAR HEMOGLOBIN 31.3 pg (29.0-33.0); MEAN CORPUSCULAR HGB CONC 36.3 g/dl (32.0-37.0); MEAN CORPUSCULAR VOLUME 86.3 fl (82.0-101.0); MEAN PLATELET VOLUME 9.4 fl (7.4-10.4); MONOCYTE # 0.3 10^3/ul (0.3-0.9); MONOCYTES % 8.9 % (0.0-11.0); NEUTROPHIL # 1.7 10^3/ul (1.6-7.5); NEUTROPHILS % 44.2 % (39.0-77.0); PLATELET COUNT 183 10^3/UL (140-415); RED BLOOD COUNT 4.44 10^6/ul (4.70-6.10); RED CELL DISTRIBUTION WIDTH 13.6 % (11.5-14.5); WHITE BLOOD COUNT 3.8 10^3/ul (4.8-10.8)
[2017-10-12] MEDS: LINAGLIPTIN 5 MG TABLET PO SCH (09:26)
[2017-10-12] MEDS: FAMOTIDINE 20 MG TAB PO SCH (09:26)
[2017-10-12] MEDS: DOCUSATE SODIUM 100 MG CAP PO SCH (09:26)
[2017-10-12] MEDS: POTASSIUM CHLORIDE (SR) 20 MEQ TAB PO SCH (09:27)
[2017-10-12 09:28] VITALS: BP 101/56; RESP 18
[2017-10-12] MEDS ORDERED: INSULIN ASPART [NOVOLOG] 3 ML PEN SC ONE (09:30)
--- NOTE | 2017-10-12 09:42 | PDOCDIS ---
Discharge Instructions CONDITION Patient Condition: Stable HOME CARE INSTRUCTIONS: Special Diet: 1800 ADAYour diet recommendation is: Carbohydrate- hydrate controlled diet. FOLLOW UP/APPOINTMENTS Follow-up Plan 1.Follow up with primary care physician in 1 week If you don't have one please let someone know, we can give you resources that may help you pick one. You may also call your insurance company to assign one to you. Review your medication list with your nurse before leaving and if you need new prescriptions please let your nurse know. I may have made changes to your home medications or given you new prescriptions, please let your primary doctor know as well. Stay compliant with your medications and report any side effects to your PCP or pharmacist. Return to the ER if you have any concerns and cannot reach your doctors or call your insurance company, they usually have a nurse that can help you. 2. Call 911 or go to the nearest emergency room if experiencing loss of consciousness, dizziness, chest pain, shortness of breath, vomiting/abdominal pain, speech difficulties, motor weakness or any unusual symptoms. YAYA GONSALVES NP Oct 12, 2017 09:42
[2017-10-12] MEDS ORDERED: GLUCOMETER (09:44)
[2017-10-12] MEDS ORDERED: LANT3I SC (09:44)
[2017-10-12] MEDS ORDERED: METF1000 PO (09:44)
--- NOTE | 2017-10-12 09:45 | DS ---
Date/Time of Note Date/Time of Note DATE: 10/12/17 TIME: 09:45 Discharge Summary Admission/Discharge Info Admit Date/Time Oct 09, 2017 at 09:07 Discharge Date/Time Discharge Diagnosis DKA- Resolved. Type 2 DM Patient Condition: Stable Hospital Course This is a 41-year-old male who was recently diagnosed with diabetes type 2 and started on oral metformin about 2 months ag presented with lethargy and nausea who was noted with severe DKA and was admitted. A1C 13.6. Patient was placed on insulin gtt. Gap closed and he was succefully transitioned to SQ insulon.Patient had DM education.Patient didnot have any further signs.He is now ready for discharge with outpt follow-up.Recommended up-titration of Metformin to 1000 twice a day along with Lantus. Patient verbalized dc instructions. Disposition:Home 60mins spent on coordinating discharge on this patient. Patient was seen in collaboration with . Home Meds Active Scripts [Glucometer] No Conflict Check, #1 For blood sugar check 3 times a day. Patient needs 30 day supplies of lancets, and test strips. Prov:YAYA GONSALVES NP 10/12/17 Insulin Glargine* (Lantus*) 100 Unit/Ml Soln, 15 UNIT SC DAILY, #1 VIAL Okay to substitute based on insurance status. If insulin pen is not covered, okay to replace with vial. Please provide patient with 30 day supplies of insulin syringes, needles, lancets, and test strips. Patient to check blood glucose 2-3 times a day. Prov:YAYA GONSALVES NP 10/12/17 Metformin Hcl* (Metformin Hcl*) 1,000 Mg Tablet, 1000 MG PO WITH BREAKFAST DINNE , #30 TAB Prov:YAYA GONSALVES NP 10/12/17 Follow-up Plan 1.Follow up with primary care physician in 1 week If you don't have one please let someone know, we can give you resources that may help you pick one. You may also call your insurance company to assign one to you. Review your medication list with your nurse before leaving and if you need new prescriptions please let your nurse know. I may have made changes to your home medications or given you new prescriptions, please let your primary doctor know as well. Stay compliant with your medications and report any side effects to your PCP or pharmacist. Return to the ER if you have any concerns and cannot reach your doctors or call your insurance company, they usually have a nurse that can help you. 2. Call 911 or go to the nearest emergency room if experiencing loss of consciousness, dizziness, chest pain, shortness of breath, vomiting/abdominal pain, speech difficulties, motor weakness or any unusual symptoms. Primary Care Provider Care Physician No Primary Pending Labs Laboratory Tests Test 10/11/17 12:16 10/11/17 14:23 10/11/17 17:30 10/11/17 20:15 Bedside Glucose 248mg/dL (70-220) 316mg/dL (70-220) 253mg/dL (70-220) 331mg/dL (70-220) Test 10/12/17 01:44 10/12/17 07:30 10/12/17 08:13 Bedside Glucose 197mg/dL (70-220) 206mg/dL (70-220) White Blood Count 3.810^3/ul (4.8-10.8) Red Blood Count 4.4410^6/ul (4.70-6.10) Hemoglobin 13.9g/dl (14.0-18.0) Hematocrit 38.3% (42.0-52.0) Mean Corpuscular Volume 86.3fl (82.0-101.0) Mean Corpuscular Hemoglobin 31.3pg (29.0-33.0) Mean Corpuscular Hemoglobin Concent 36.3g/dl (32.0-37.0) Red Cell Distribution Width 13.6% (11.5-14.5) Platelet Count 65046^3/UL (140-415) Mean Platelet Volume 9.4fl (7.4-10.4) Neutrophils % 44.2% (39.0-77.0) Lymphocytes % 44.5% (15.0-51.0) Monocytes % 8.9% (0.0-11.0) Eosinophils % 1.3% (0.0-7.0) Basophils % 0.8% (0.0-2.0) Nucleated Red Blood Cells % 0.0/100WBC (0.0-0.0) Neutrophils # 1.710^3/ul (1.6-7.5) Lymphocytes # 1.710^3/ul (0.8-2.9) Monocytes # 0.310^3/ul (0.3-0.9) Eosinophils # 0.110^3/ul (0.0-0.5) Basophils # 0.010^3/ul (0.0-0.1) Nucleated Red Blood Cells # 0.010^3/ul (0.0-0.0) Sodium Level 137mmol/L (135-144) Potassium Level 3.9mmol/L (3.5-5.1) Chloride Level 101mmol/L (97-110) Carbon Dioxide Level 25mmol/L (21-31) Anion Gap 15 (8-16) Blood Urea Nitrogen 14mg/dl (7-20) Creatinine 0.56mg/dl (0.61-1.24) Glucose Level 210mg/dl (70-220) Calcium Level 9.2mg/dl (8.4-10.2) YAYA GONSALVES NP Oct 12, 2017 09:45
[2017-10-12 15:27] VITALS: BP 102/71; RESP 16
[2017-10-13] MEDS ORDERED: INFLUENZA VIRUS VACCINE 0.5 ML (DISPENSING) IM* ONE (09:00)
== END 2017-10-12 19:10 | disposition home or self-care (01) | DRG 639 ==
LOC: E/R 07:12 → ICU 09:07 → MS2 10-10 14:55
PROVIDERS: ADMIT Family Medicine; ATTEND Family Medicine
DX: E11.10 Type 2 diabetes mellitus with ketoacidosis without coma (principal); E87.6 Hypokalemia; M54.9 Dorsalgia, unspecified; Z79.4 Long term (current) use of insulin; Z79.84 Long term (current) use of oral hypoglycemic drugs
CPT/HCPCS: 36415; 71010; 74176; 80048; 80053; 80061; 80307; 81001; 82803; 82962; 83036; 83605; 83735; 84100; 84484; 84681; 85025; 85610; 85730; 87040; 87081; 87086; 93005; 96374; 96375; J1170; J1815; J2270; J2405; J3480; J7030; J7040; J7042; J7120